=== PATIENT | female | born 1995 | race Two or more races ===

== ENCOUNTER 2024-03-09 00:05 | Emergency (ER) | payer OTHER ==
[~2024-03-09] VITALS: Ht 154.9 cm; Wt 56.2 kg
[~2024-03-09 00:05] MED LIST: FERROUS SULFAT325 M1 PO; IRON240 MG PO; PRENATAL TABLE1 EAC1 PO; PREPLUS CA-FE1 EACH PO
[2024-03-09] MEDS ORDERED: ONDANSETRON HCL 2 MG/ML VIAL IV STA (01:02)
[2024-03-09] MEDS ORDERED: FAMOTIDINE/PF 20 MG/2 ML VIAL IV PUSH STA (01:02)
[2024-03-09] MEDS ORDERED: RINGERS SOLUTION,LACTATED 1,000 ML IV STA (01:02)
[2024-03-09] MEDS ORDERED: ONDANSETRON HCL 2 MG/ML VIAL ONE (01:05)
[2024-03-09] MEDS ORDERED: FAMOtidine 200mg/20ml VIAL ONE (01:06)
[2024-03-09 01:36] LABS: HEMOGLOBIN 12.2 g/dL (12.0-15.00); MEAN CELL VOLUME 85.8 fL (80.00-100.00); MEAN CORPUSCULAR HEMOGLOBIN 29.1 pg (27.00-32.0); MEAN CORPUSCULAR HGB CONC 33.9 g/dl (32.0-36.0); PLATELET COUNT 134 K/uL (150-450); RED CELL DISTRIBUTION WIDTH 14.8 % (11.5-14.5)
[2024-03-09 02:05] LABS: INR 1.04; PARTIAL THROMBOPLASTIN TIME 28.8 SECONDS (22.0-34.0); PROTHROMBIN TIME 10.9 SECONDS (9.0-11.5)
[2024-03-09 03:07] LABS: CALCIUM 9.2 mg/dL (8.5-10.1); CREATININE SERUM 0.68 mg/dL (0.55-1.02); GFR 101.59; POTASSIUM 3.73 mEq/L (3.5-5.1)
== END 2024-03-09 04:21 | disposition home or self-care (01) ==
LOC: ER 00:06
DX: O99.611 Diseases of the digestive system complicating pregnancy, first trimester (principal); K52.89 Other specified noninfective gastroenteritis and colitis; N92.0 Excessive and frequent menstruation with regular cycle; Z3A.09 9 weeks gestation of pregnancy

== ENCOUNTER → 2024-03-12 | Day surgery (SDC) | payer OTHER ==
[~2024-03-12] VITALS: Ht 154.9 cm; Wt 51.7 kg
[~2024-03-12] MED LIST changes: +DOXYCYCLINE HYCLATE 100 MG TABLET PO ONE; +FAMOtidine 20 MG TABLET PO ONE; +KETOROLAC TROMETHAMINE 30 MG VIAL IV PRN; +MORPHINE SULFATE 4 MG/ML CARTRIDGE IV PRN; +OXYTOCIN 10 UNITS/ML VIAL IV ONE; +OXYTOCIN 10 UNITS/ML VIAL ONE; +POVIDONE-IODINE 118 ML BOTT TOP ONE; +RINGERS SOLUTION,LACTATED 1,000 ML IV SCH
--- NOTE | 2024-03-12 15:43 | NUR ---
PTE ALERTA Y ORIENTADA X3. REFIERE [place] VENIDO PORQUE TIENE OPERACION PENDIENTE CON JUAN.MARIN PARA REMOVER FETO EXPIRADO DE UTERO. SE WINDY SV Y SE UBICA
[2024-03-12 16:28] LABS: HEMATOCRIT 36.3 % (36.0-45.00); HEMOGLOBIN 12.3 g/dL (12.0-15.00); MEAN CELL VOLUME 85.3 fL (80.00-100.00); PLATELET COUNT 164 K/uL (150-450); RED BLOOD COUNT 4.25 M/uL (4.00-6.00); RED CELL DISTRIBUTION WIDTH 14.5 % (11.5-14.5)
[2024-03-12 20:43] LABS: RH POSITIVE
== END | disposition home or self-care (01) ==
LOC: EDSTATUS 15:08 → ER 15:08 → CIR.AMB 16:07 → SEC-K 16:07 → CIR.AMB 16:07 → ER 16:07 → O/R 22:04 → SEC-K 22:04 → O/R 23:50
PROVIDERS: General Practice; ATTEND Emergency Medicine
DX: O02.1 Missed abortion (principal)